=== PATIENT | male | born 1960 | race Caucasian/White ===

== ENCOUNTER 2016-09-27 11:58 | Emergency (ER) | payer MEDICAID ==
[2016-09-27 12:04] VITALS: TEMP 99; O2SAT 99
--- NOTE | 2016-09-27 12:21 | ED PDOC ---
HPI: Psych/Substance Abuse Time Seen by Provider: 09/27/16 12:08 Chief Complaint (Nursing): Psychiatric Evaluation Chief Complaint (Provider): Psychiatric Evaluation History Per: Patient History/Exam Limitations: no limitations Associated Symptoms: denies: Suicidal Thoughts, Suicidal Plan Additional Complaint(s): Alfredo Wright is a 56 y/o male, with a pertinent past medical history of schizophrenia, presenting to the ER via [facility] on 09/27/2016 for a psychiatric evaluation. Patient reports feeling "confused" after having conflictions with paying rent at his apartment. He states he needs someone to give him directions on where to go in life. Denies any suicidal or homicidal ideation, and auditory or visual hallucinations. Offers no other medical or physical complaints at this time. Rest of HPI/ROS is limited due to the patient' s psychiatric state. 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 - Family History Family History: States: Unknown Family Hx - Social History Current smoker - smoking cessation education provided: No Alcohol: None Drugs: Denies - Home Medications Home Medications: Ambulatory Orders Medication Instructions Recorded DULoxetine [Cymbalta] 1 tab PO BID 12/17/13 QUEtiapine [SEROquel] 200 mg PO DAILY 12/17/13 Risperidone [Risperdal] 4 mg PO BID 12/17/13 hydrOXYzine Pamoate [Vistaril] 50 mg PO TID 12/17/13 Benztropine [Benztropine Mesylate] 0.5 mg PO DAILY 07/28/15 Naproxen [Naprosyn] 500 mg PO Q12H #20 tab 07/28/15 QUEtiapine [Seroquel XR] 300 mg PO DAILY 07/28/15 - Allergies Allergies/Adverse Reactions: Allergies Allergy/AdvReac Type Severity Reaction Status Date / Time shrimp Allergy RASH Verified 09/27/16 12:03 Review of Systems Review Of Systems: ROS cannot be obtained secondary to pt's inabilty to answer questions. Physical Exam - Reviewed Nursing Documentation Reviewed: Yes Vital Signs Reviewed: Yes - Physical Exam Appears: Positive for: Non-toxic, No Acute Distress Head Exam: Positive for: ATRAUMATIC, NORMOCEPHALIC Skin: Positive for: Normal Color. Negative for: Rash Eye Exam: Positive for: Normal appearance Neck: Positive for: Normal Cardiovascular/Chest: Positive for: Regular Rate, Rhythm. Negative for: Murmur Respiratory: Positive for: Normal Breath Sounds. Negative for: Respiratory Distress Extremity: Positive for: Normal ROM. Negative for: Deformity, Swelling Neurologic/Psych: Positive for: Alert, Oriented. Negative for: Motor/Sensory Deficits - ECG O2 Sat by Pulse Oximetry: 99 Medical Decision Making Medical Decision Makin:08 Initial Impression- Psychiatric Evaluation Initial Plan- * Crisis Evaluation * * Pt given resources for social sciences professor. Documented by Emily Priest, acting as a scribe for Hayley Garcia PA-C All medical record entries made by the Scribe were at my direction and personally dictated by me. I have reviewed the chart and agree that the record accurately reflects my personal performance of the history, physical exam, medical decision making, and the department course for this patient. I have also personally directed, reviewed, and agree with the discharge instructions and disposition. Disposition - Clinical Impression Clinical Impression: Anxiety - Patient ED Disposition Is Patient to be Admitted: No Counseled Patient/Family Regarding: Diagnosis, Need For Followup - Disposition Referrals: [facility][1] [Outside] Disposition: Routine/Home Disposition Time: 14:32 Condition: GOOD Instructions: Anxiety (ED)
[2016-09-27 14:33] VITALS: BP 134/88; PULSE 87
== END 2016-09-27 14:33 | disposition home or self-care (01) ==
LOC: H.ER 11:58
DX: F41.9 Anxiety disorder, unspecified (principal)

== ENCOUNTER 2016-11-09 10:16 | Emergency (ER) | payer MEDICAID ==
[2016-11-09 10:42] VITALS: BP 126/79; PULSE 74; RESP 20; TEMP 98; O2SAT 98
[2016-11-09 10:43] VITALS: BMI 23.3
--- NOTE | 2016-11-09 12:46 | ED PDOC ---
HPI: General Adult Time Seen by Provider: 11/09/16 12:10 Chief Complaint (Nursing): Med Refill Chief Complaint (Provider): Med refill History Per: Patient History/Exam Limitations: no limitations Onset/Duration Of Symptoms: Days (x1) Additional Complaint(s): Alfredo Wright is a 56 year old male who presents to the emergency department for refill of psych medications. Patient reports that he has been taking his psych medications but he finished them as of today. He states his psychiatrist is on medical leave and patient has not made appt with covering MD as of yet. Patient denies any homicidal or suicidal ideations. No further medical complaints. PMD: None provided. Past Medical History Reviewed: Historical Data, Nursing Documentation, Vital Signs Vital Signs: Last Vital Signs Temp 98 F 11/09/16 10:42 Pulse 74 11/09/16 10:42 Resp 20 11/09/16 10:42 BP 126/79 11/09/16 10:42 Pulse Ox 98 11/09/16 13:37 - Medical History PMH: Asthma, COPD, Depression, Post Traumatic Stress Disorder, Schizophrenia - Surgical History Other surgeries: Right hand surgery. 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, left forearm surgery - Family History Family History: States: No Known Family Hx - Living Arrangements Living Arrangements: With Family - Social History Current smoker - smoking cessation education provided: Yes (>10 cigarettes daily ) Alcohol: None Drugs: Denies - Home Medications Home Medications: Ambulatory Orders Medication Instructions Recorded DULoxetine [Cymbalta] 120 mg PO DAILY 12/17/13 QUEtiapine [SEROquel] 200 mg PO DAILY 12/17/13 Risperidone [Risperdal] 4 mg PO BID 12/17/13 hydrOXYzine Pamoate [Vistaril] 50 mg PO BID 12/17/13 Benztropine [Benztropine Mesylate] 0.5 mg PO BID 07/28/15 QUEtiapine [Seroquel XR] 600 mg PO HS 07/28/15 Benztropine [Benztropine Mesylate] 0.5 mg PO BID #60 tab 11/09/16 DULoxetine [Cymbalta] 60 mg PO DAILY #60 tab 11/09/16 Quetiapine Fumarate [Seroquel] 200 mg PO QAM #30 tablet 11/09/16 Quetiapine Fumarate [Seroquel] 300 mg PO ASDIR #60 tablet 11/09/16 Risperidone [Risperdal] 4 mg PO BID #60 tablet 11/09/16 hydrOXYzine Pamoate [Vistaril] 50 mg PO BID #60 cap 11/09/16 - Allergies Allergies/Adverse Reactions: Allergies Allergy/AdvReac Type Severity Reaction Status Date / Time shrimp Allergy RASH Verified 09/27/16 12:03 Review of Systems ROS Statement: Except As Marked, All Systems Reviewed And Found Negative Psych: Positive for: Other (refill of psych meds, denies suicidal or homicidal ideation) Physical Exam - Reviewed Nursing Documentation Reviewed: Yes Vital Signs Reviewed: Yes - Physical Exam Appears: Positive for: Well, Non-toxic, No Acute Distress Head Exam: Positive for: ATRAUMATIC, NORMAL INSPECTION, NORMOCEPHALIC Skin: Positive for: Normal Color, Warm, Dry Eye Exam: Positive for: Normal appearance Cardiovascular/Chest: Positive for: Regular Rate, Rhythm Respiratory: Positive for: Normal Breath Sounds. Negative for: Respiratory Distress Neurologic/Psych: Positive for: Alert, Oriented, Mood/Affect (appropriate) - ECG O2 Sat by Pulse Oximetry: 98 (RA) Pulse Ox Interpretation: Normal Medical Decision Making Medical Decision Making: Initial Impression: 56 year old male seeking refill of psychiatric medication Initial Plan: --Crisis Evaluation As per crisis counselor and psychiatrist solutions specialist, Dr. Hi, patient does not meet criteria for admission. Patient is stable for discharge. Dr. Hi states it is ok to refill psych meds. ED pharmacist contacted patient's pharmacy to confirm meds and doses. workers' compensation mediator was also able to provide patient with follow-up appointment at mental health clinic. Scribe Attestation: Documented by Christopher Nguyen, acting as a scribe for Negrita BOND. Provider Scribe Attestation: All medical record entries made by the Scribe were at my direction and personally dictated by me. I have reviewed the chart and agree that the record accurately reflects my personal performance of the history, physical exam, medical decision making, and the department course for this patient. I have also personally directed, reviewed, and agree with the discharge instructions and disposition. Disposition - Clinical Impression Clinical Impression: Bipolar disorder - Patient ED Disposition Is Patient to be Admitted: No Counseled Patient/Family Regarding: Diagnosis, Need For Followup, Rx Given - Disposition Referrals: [facility] [Outside] Disposition: Routine/Home Disposition Time: 14:23 Condition: STABLE Additional Instructions: TAKE MEDS DIRECTED. FOLLOW UP DIRECTED. Prescriptions: Benztropine [Benztropine Mesylate] 0.5 mg PO BID #60 tab DULoxetine [Cymbalta] 60 mg PO DAILY #60 tab hydrOXYzine Pamoate [Vistaril] 50 mg PO BID #60 cap Quetiapine Fumarate [Seroquel] 200 mg PO QAM #30 tablet Quetiapine Fumarate [Seroquel] 300 mg PO ASDIR #60 tablet Risperidone [Risperdal] 4 mg PO BID #60 tablet Instructions: Bipolar Disorder (ED) Forms: [employer] (Danish)
== END 2016-11-09 14:41 | disposition home or self-care (01) ==
LOC: H.ER 10:16
DX: Z76.0 Encounter for issue of repeat prescription (principal); F20.9 Schizophrenia, unspecified; F31.9 Bipolar disorder, unspecified; F43.10 Post-traumatic stress disorder, unspecified